=== PATIENT | female | born 1955 | race Caucasian/White ===

== ENCOUNTER → 2023-12-13 12:42 | Outpatient (REF) | payer BC, SELFPAY | LOC: HWRAD 12:42 | PROVIDERS: ATTENDING PHYSICIAN Surgery Vascular Surgery; FAMILY PHYSICIAN Family Medicine | DX: I65.21 Occlusion and stenosis of right carotid artery (principal) | CPT/HCPCS: 70496; 70498; Q9967 ==

== ENCOUNTER 2024-01-17 07:12 | Inpatient (IN) | payer BC, SELFPAY ==
[2024-01-12 10:10] LABS: % Basophils 0.6 % (0-2); % Eosinophils 4.9 % (0-6); % Immature Granulocytes 0.2 % (0-0.5); % Lymphocytes 11.7 % (20.5-51.1); % Monocytes 6.3 % (1.7-9.3); % Neutrophils 76.3 % (42.2-75.2); Absolute Basophils 0.1 10^3/uL (0-0.2); Absolute Eosinophils 0.4 10^3/uL (0-0.7); Absolute Monocytes 0.5 10^3/uL (0.1-0.6); Absolute Neutrophils 6.4 10^3/uL (1.4-6.5); Hematocrit 36.7 % (37.0-47.0); Hemoglobin 12.5 g/dL (12.0-16.0); Mean Corp Hgb Conc. 34.1 g/dL (33.0-37.0); Mean Corpuscular Hgb 31.3 pg (27.0-31.0); Nucleated Red Blood Cells % 0 %; Platelet Count 316 10^3/uL (130-400); Red Blood Cell Count 3.99 10^6/uL (4.20-5.40); White Blood Cell Count 8.4 10^3/uL (4.8-10.8)
[2024-01-12 10:19] LABS: INR 1.01; PT 13.3 Sec (11.4-14.6)
[2024-01-12 10:20] LABS: APTT 30.3 Sec (23.4-35.0)
[2024-01-12 10:32] LABS: Blood Urea Nitrogen 20 mg/dl (7-17); Calcium 9.9 mg/dl (8.4-10.2); Carbon Dioxide 27 mmol/L (22-30); Chloride 101 mmol/L (98-107); Glucose 140 mg/dl (70-99); Potassium 4.4 mmol/L (3.5-5.1); Sodium 143 mmol/L (135-145); eGFR > 60.00
[2024-01-12 11:49] VITALS: BMI 38.9
[2024-01-17] VITALS (8 sets, daily range): BP systolic 101–157; BP diastolic 43–68
[2024-01-17] MEDS: BACTROBAN NASAL 1 GRAM NASAL (08:01)
[2024-01-17] MEDS: NSS 500 IV (08:01)
[2024-01-17] MEDS: PERIDEX 0.12% ORAL RINSE 15 ML PO (08:01)
[2024-01-17 08:08] LABS: Glucose - Point of Care 102 mg/dl (70-99)
--- NOTE | 2024-01-17 08:39 | W.SUR.PREOP ---
Pre-Operative Surgical Note
-
I have examined this patient prior to the performance of the scheduled procedure.
The patient's condition is unchanged from the time of the current History and
Physical and the patient is able to undergo the scheduled procedure.
[2024-01-17 09:20] LABS: ACT-LR - POC 322 Seconds (116-155)
[2024-01-17 10:04] LABS: ACT-LR - POC 263 Seconds (116-155)
--- NOTE | 2024-01-17 10:32 | OR.RPT ---
Operative Report
Operative Report
Date of Operation: 01/17/2024
Pre Op Diagnosis: High-grade stenosis right carotid artery, asymptomatic
Post Op Diagnosis: High-grade stenosis right carotid artery, asymptomatic
Procedure: RIGHT carotid endarterectomy with patch angioplasty using bovine pericardium
Surgeon: Jean Marie Arteaga III, MD
Horse Identifier: Asim Davalos MD PhD, PGY2
Anesthesia: General
Complications: None
History and Indications for Procedure: 68-year-old female with high-grade asymptomatic right carotid artery stenosis
Procedure in Detail: Rere Junior was correctly identified and placed supine on the operating table. After adequate induction of anesthesia the right neck was positioned, prepped and draped in the usual sterile fashion. Preoperative antibiotics
were administered. A timeout procedure was performed with the nursing and anesthesia staff confirming the patients identity as well as the nature and laterality of the procedure.
The carotid bifurcation was marked with ultrasound at the beginning of the case. The incision was planned accordingly. An incision was made along the anterior border of the right sternocleidomastoid muscle. Electrocautery was used to divide the
subcutaneous tissue and platysma. The carotid sheath was entered with sharp dissection. The internal jugular vein was retracted laterally. The vagus nerve was identified and protected throughout the case. The common carotid artery was identified at
the base of this incision and carefully encircled with a vessel loop. The patient was systemically heparinized. The dissection was continued distally towards the carotid bifurcation. The facial vein was skeletonized, ligated and divided between ties
and clips. The proximal external carotid artery was encircled with a vessel loop. The distal internal carotid artery was encircled with a vessel loop at a soft spot on the artery beyond the plaque. The hypoglossal nerve was identified and protected.
The internal vessel loop was secured followed by the common and external. An arteriotomy was made on the distal common carotid artery with an 11-blade. This was extended proximally and distally with Anderson scissors. The arteriotomy was extended
distally through the plaque to an area of normal appearing internal carotid artery. The distal vessel loop was replaced with a short tip hockey-stick type vascular clamp. An endarterectomy was performed with a [place] elevator in the standard
fashion. The proximal extent of the plaque was transected with scissors. The distal end of the plaque in the internal carotid artery feathered very nicely with a slight distal intimal flap identified. This was tacked down nicely with 2 interrupted
7-0 Prolene sutures. The plaque extending into the external carotid artery was everted. Once the plaque was fully removed the endarterectomy plane was irrigated with heparinized saline and any loose fronds of tissue were removed. A pre-cut piece of
bovine pericardium was sewn in place using a running 6-0 Prolene suture. Prior to the completion of the patch the common carotid was allowed to forward bleed and the external was allowed to back bleed. The area under the patch was irrigated with
heparinized saline to remove any potential thrombus or debris. The anastomosis was completed.
The external vessel loop was released first, followed by the common and then the internal. There was an excellent pulse in the distal internal carotid artery. An excellent quality Doppler signal in the distal internal carotid artery was also
confirmed. The patch suture line was closely inspected for hemostasis and was achieved. Protamine was administered. Hemostasis was achieved in the wound bed. The wound was irrigated with saline solution.
The wound was then closed in layers. Skin glue was applied. The patient awoke from anesthesia with no immediate neuro deficits and was taken to the PACU in stable condition.
Attestation: I was present and responsible for the entire procedure
Signed:
Jean Marie Arteaga III, MD
[facility] Vascular Surgery
[phone] (cell)
[2024-01-17 10:54] LABS: Glucose - Point of Care 153 mg/dl (70-99)
[2024-01-17 11:03] LABS: Hemoglobin 10.5 g/dL (12.0-16.0); Mean Corp Hgb Conc. 33.9 g/dL (33.0-37.0); Mean Corpuscular Hgb 30.3 pg (27.0-31.0); Mean Corpuscular Volume 89.6 fL (81.0-99.0); Platelet Count 262 10^3/uL (130-400); Red Blood Cell Count 3.46 10^6/uL (4.20-5.40); Red Cell Dist. Width 13.8 % (11.5-14.5); White Blood Cell Count 11.2 10^3/uL (4.8-10.8)
[2024-01-17] MEDS: SUBLIMAZE 25 MCG IV (11:15)
--- NOTE | 2024-01-17 11:15 | W.IMMPOSTOP ---
Surgical Immed Post Op Note
-
Primary Surgeon: Dr. Jean Marie Arteaga III, MD
Assisting Surgeon: Asmi Davalos MD, PhD (PGY-2)
Pre-op Diagnosis: Right carotid stenosis
Post-op Diagnosis: Right carotid stenosis
Procedure Performed: Right carotid endarterectomy with bovine patch angioplasty
Anesthesia Type: General
Specimen / Cultures: None
Estimated Blood Loss: 25cc
Complications: None
Operative Findings: The patient was brought to the OR and positioned supine. Following induction of anesthesia, intubation, radial line placement, and neuromonitoring placement, ultrasound guidance was used to map the course of the right common
carotid artery, bifurcation, and right ICA. The patient was prepped and draped in usual sterile fashion. Incision was made on the anterior border of the SCM. Electrocautery was used to dissect through the subq and platysma layers. Sharp dissection
was performed to expose the RIJV. This was swept laterally with a retractor. The vagus nerve was identified. Proximal control was achieved on the common carotid using blue vessel loop. Distal control of the right ICA, superior thyroid artery, and
right ECA was achieved with red vessel loops. The vessel loops were tightened beginning with internal, followed by common, and external carotid arteries. 11 blade was used to make arteriotomy overlying the plaque. This incision was extended with
Pott's scissors. An endarterectomy was performed with a freer without complication. Two tacking sutures were placed at the distal end of the vessel. A bovine pericardial patch was brought to the field. A patch angioplasty was performed using running
prolene suture. Prior to completing the patch, the vessel was allowed to back and forward bleed. Vessel loops were removed and ultrasound demonstrated excellent flow in the ICA and ECA. Hemostasis was achieved and the wound bed was irrigated. The
wound was closed with three layers of suture and skin glue at the surface. The patient demonstrated no new neurologic deficits at the conclusion of the case, CN12, upper and lower extremity motors intact, facial motor intact. The patient was
transported to the PACU in stable condition.
[2024-01-17 11:16] LABS: Blood Urea Nitrogen 18 mg/dl (7-17); Calcium 8.5 mg/dl (8.4-10.2); Carbon Dioxide 23 mmol/L (22-30); Chloride 105 mmol/L (98-107); Estimated Creatinine Clearance 99 ml/min; Glucose 154 mg/dl (70-99); Potassium 4.2 mmol/L (3.5-5.1); Sodium 140 mmol/L (135-145); eGFR > 60.00
[2024-01-17 11:17] LABS: INR 1.11; PT 14.1 Sec (11.4-14.6)
[2024-01-17 11:18] LABS: APTT 31.4 Sec (23.4-35.0)
[2024-01-17] MEDS: MORPHINE SULFATE 2 MG IV ×3 (12:16→22:50)
[2024-01-17] MEDS: CRESTOR 5 MG PO (12:16)
[2024-01-17] MEDS: NSS 1000 IV ×2 (12:16→23:03)
--- NOTE | 2024-01-17 13:23 | PTCARENOTE ---
1150-Received pt from PACU via bed.Pt is awake and alert.Speech is appropriate.Face is symmetrical.Tongue is midline.5/5MAE noted.c/o severe right neck pain.Medicated with Morphine with good relief.SB noted.Right radial A Line intact.Correlates with
NIBP.IVF infusing.O2 4l NC.POX 96%Lungs CTA.Tolerating clear liquids.Pt has not voided at this time.Right neck incision intact with surgical glue.No drainage or edema noted.Ice applied as ordered.Pt's and daughter at bedside.Plan of care
discussed.
[2024-01-17] MEDS: NOVOLOG FLEXPEN-LOW RESISTANCE SC (13:31)
--- NOTE | 2024-01-17 14:20 | CON.INTV ---
Consultation
Consultation Request
Date/Time Consultation Requested: 01/17/2024
Date/Time Consultation Performed: 01/17/2024
Requesting Provider: Dr. Arteaga
Performing Provider: Dr. Gurwinder Cano
Reason for Consultation: Status post right carotic endarterectomy
Medical History
Past Medical History
Past Medical History: Other (See assessment and plan section)
Social History
Tobacco: Former Smoker
Alcohol: None
Drug: None
Living: With Family
Family History
Family History: Reviewed & Not Pertinent
Allergies / Home Medications
Allergies
Allergy/AdvReac Type Severity Reaction Status Date / Time
No Known Allergies Allergy Unverified 01/10/24 13:27
Home Medications
�Medication �Instructions �Recorded �Confirmed �Last Taken �Type
Flonase 1 dose intranasal DAILY PRN 01/10/24 01/17/24 01/14/24 09:00 History
congestion
aspirin 81 mg capsule 81 mg PO DAILY Blood Clot 01/10/24 01/17/24 01/16/24 09:00 History
Prevention/Tx
calcium polycarbophil 625 mg 1,250 mg PO DAILY Constipation 01/10/24 01/17/24 01/16/24 23:00 History
tablet (FiberCon)
cetirizine 10 mg tablet (Zyrtec) 10 mg PO DAILY Allergies 01/10/24 01/17/24 01/16/24 23:00 History
coenzyme Q10 30 mg capsule 30 mg PO DAILY Supplement 01/10/24 01/10/24 01/10/24 08:00 History
ezetimibe 10 mg tablet (Zetia) 10 mg PO DAILY High Cholesterol 01/10/24 01/17/24 01/16/24 09:00 History
glipizide 5 mg tablet 5 mg PO BID Diabetes 01/10/24 01/17/24 01/16/24 23:00 History
hydrochlorothiazide 25 mg tablet 25 mg PO DAILY Blood Pressure 01/10/24 01/17/24 01/16/24 09:00 History
losartan 100 mg tablet 100 mg PO DAILY Blood Pressure 01/10/24 01/17/24 01/16/24 23:00 History
metformin 500 mg tablet 500 mg PO BID Diabetes 01/10/24 01/17/24 01/16/24 23:00 History
ycbngnbh-fffy-ivok 8 mg-folic 400 1 tab PO DAILY Supplement 01/10/24 01/17/24 01/10/24 08:00 History
mcg-K 50 mcg-lutein 300 mcg tablet
(Centrum Silver Women)
rosuvastatin 5 mg tablet (Crestor) 5 mg PO QMWF High Cholesterol 01/10/24 01/17/24 01/14/24 08:00 History
semaglutide 0.25 mg or 0.5 mg (2 0.25 mg SC QWEEK Diabetes 01/10/24 01/10/24 12/22/23 History
mg/3 mL) subcutaneous pen injector
(Ozempic)
Review of Systems
-
History Source: Patient
All other systems: Negative unless noted
Vitals / Labs / Diagnostic Testing
Vital Signs
Temp Pulse Resp BP Pulse Ox
97.9 F 53 14 102/51 96
01/17/24 12:49 01/17/24 12:30 01/17/24 12:30 01/17/24 11:45 01/17/24 13:00
Lab Data
01/17/24 10:54
01/17/24 10:53
Laboratory Results
01/17/24
10:53
PT 14.1
INR 1.11
APTT 31.4
Diagnostic Testing:
Physical Exam
-
HEENT: Normocephalic and Other ( No stridor)
Cardiovascular: S1/S2
Respiratory: Clear and Non-Labored Respirations
GI: Soft and Non Distended
Neurology: Awake, Alert, AO x 3, No Motor Deficits and Other (Right cervical incision is intact. No hematoma.)
Skin: Warm
General: Respiratory Distress
Assessment
-
Right carotid endarterectomy with bovine patch angioplasty 01/17/2024-Dr. Arteaga
Conditions present prior admission:
HTN
High Cholesterol
Type 2 DM
s/p ZEHRA
Former smoker
History of knee replacement-right
Assessment and plan:
Postoperative surgical intensive care unit monitoring
Supplemental oxygen as needed
Incentive spirometry
Aspiration precautions
History of endometrial carcinoma/apparently son intra-abdominal lymphadenopathies that were metastatic, status post radiation and chemotherapy. Currently on remission.
Incision intact without hematoma
No stridor on exam
-
Chest x-ray 01/12/2024: Clear lung
Neuro and vascular checks per protocol
Vascular surgery following-correspondence and operative notes reviewed
Monitor blood pressure
Restart outpatient medications
Cardene drip will be started if needed
Follow blood sugars
Insulin supplementation as needed
Advance diet as tolerated
Gentle IV fluid
Monitor electrolytes
DVT prophylaxis
Early mobilization
--- NOTE | 2024-01-17 15:28 | PTCARENOTE ---
Pt c/o right neck pain.Requested and received Morphine for pain.
--- NOTE | 2024-01-17 16:31 | PTCARENOTE ---
Pt assessed.No change in assessment noted.Pt voided in bedpan.
[2024-01-17] MEDS: HEPARIN 5000 UNITS SC ×2 (17:20→23:00)
[2024-01-17] MEDS: GLUCOTROL 5 MG PO (17:21)
[2024-01-17] MEDS: GLUCOPHAGE 500 MG PO (17:22)
[2024-01-17 17:30] LABS: Glucose - Point of Care 239 mg/dl (70-99)
[2024-01-17] MEDS: ROXICODONE 5 MG PO ×2 (17:31→21:35)
[2024-01-17] MEDS: NOVOLOG FLEXPEN-LOW RESISTANCE 2 UNITS SC (17:56)
--- NOTE | 2024-01-17 20:00 | PTCARENOTE ---
Received pt via handoff. Pt AAOx3, able to RIOS, good facial symmetry, 5/5 extremities, afebrile. NSR, palpable upper and lower pulses. 94% RA, lungs sounds diminished throughout. Hypoactive bowel sounds in all 4Q. Voiding clear yellow urine in
bedpan. Right radial A Line zeroed and correlates w/ cuff. NS gtt running see flowsheet. Family at bedside. Call yarbrough within reach, will continue to monitor.
[2024-01-17] MEDS: NOVOLOG FLEXPEN 2 UNITS SC (21:57)
[2024-01-17 21:59] LABS: Glucose - Point of Care 242 mg/dl (70-99)
[2024-01-18] VITALS (9 sets, daily range): BP systolic 124–181; BP diastolic 59–71; BMI 40.1
--- NOTE | 2024-01-18 | PTCARENOTE ---
All systems reassessed, no change in status. Pt given PRN medications for incision pain. Using bedpan to void. Call yarbrough at bedside, will continue to monitor.
[2024-01-18] MEDS: MORPHINE SULFATE 2 MG IV ×2 (01:34→04:34)
[2024-01-18] MEDS: ROXICODONE 5 MG PO (01:46)
--- NOTE | 2024-01-18 04:00 | PTCARENOTE ---
All systems reassessed, labs drawn, hygiene performed. Will continue to monitor.
[2024-01-18 05:04] LABS: Hematocrit 30.9 % (37.0-47.0); Hemoglobin 10.4 g/dL (12.0-16.0); Mean Corp Hgb Conc. 33.7 g/dL (33.0-37.0); Mean Corpuscular Volume 92.2 fL (81.0-99.0); Mean Platelet Volume 10.6 fL (7.4-10.4); Platelet Count 257 10^3/uL (130-400); Red Blood Cell Count 3.35 10^6/uL (4.20-5.40); Red Cell Dist. Width 13.5 % (11.5-14.5); White Blood Cell Count 12.7 10^3/uL (4.8-10.8)
[2024-01-18 05:09] LABS: INR 1.13; PT 14.3 Sec (11.4-14.6)
[2024-01-18 05:10] LABS: APTT 28.8 Sec (23.4-35.0)
[2024-01-18 05:36] LABS: Blood Urea Nitrogen 22 mg/dl (7-17); Calcium 8.3 mg/dl (8.4-10.2); Carbon Dioxide 21 mmol/L (22-30); Chloride 107 mmol/L (98-107); Estimated Creatinine Clearance 101 ml/min; Glucose 208 mg/dl (70-99); Potassium 4.4 mmol/L (3.5-5.1); Sodium 140 mmol/L (135-145); eGFR > 60.00
[2024-01-18 06:08] LABS: Hepatitis C Antibody Negative (Negative)
[2024-01-18] MEDS: TYLENOL 650 MG PO ×2 (07:55→14:01)
[2024-01-18] MEDS: THERAGRAN 1 TABLET PO (07:56)
[2024-01-18] MEDS: ZETIA 10 MG PO (07:56)
[2024-01-18] MEDS: COZAAR 100 MG PO (07:56)
[2024-01-18] MEDS: LOW STRENGTH ASPIRIN 81 MG PO (07:58)
[2024-01-18] MEDS: ORETIC 25 MG PO (07:58)
[2024-01-18] MEDS: GLUCOPHAGE 500 MG PO (07:58)
[2024-01-18] MEDS: GLUCOTROL 5 MG PO (07:58)
[2024-01-18] MEDS: HEPARIN 5000 UNITS SC (07:59)
--- NOTE | 2024-01-18 08:00 | W.PN.VS ---
Addendum entered and electronically signed by Jean Marie Arteaga III, MD 01/18/24 11:13:
This patient was seen and examined with BAR Lr. I agree with the history and physical exam as well as the assessment and plan.
Signed:
Jean Marie Arteaga III, MD
[facility] Vascular Surgery
[phone] (dfdu)
Original Note:
Today's Communication / Plan
-
d/w Dr Arteaga
Assessment/Plan
-
POD 1 RIGHT carotid endarterectomy with patch angioplasty using bovine pericardium
Plan:
-DC zeyad
-DC IVF
-Diet
-OOB/ambulate
-PO meds
-Likely DC later today
Subjective Data
-
Date of Service: January 18, 2024
Pt seen at bedside this am. No events overnight. No gtts. No complaints at this time.
Objective Data
-
Vital Signs
Temp Pulse Resp BP Pulse Ox
97.6 F 84 17 102/51 95
01/18/24 03:21 01/18/24 07:15 01/18/24 07:15 01/17/24 11:45 01/18/24 07:15
Intake and Output
01/17/24 01/18/24 01/19/24
06:59 06:59 06:59
Intake Total 2350 / 2430 80 / 80
Output Total 925 / 1225 300 / 300
Balance 1425 / 1205 -220 / -220
Intake:
Oral fluids 480 / 480
IV fluids (Total) 1870 / 1950 80 / 80
NSS 350 / 350
Nss 1,000 ml @ 80 mls/hr IV . 1520 / 1600 80 / 80
[id number] [facility] Rx#:[id number]
Output:
Urine, Voided 925 / 1225 300 / 300
Lab Results
01/18/24 04:30
01/18/24 04:30
Calcium 8.3 mg/dl (8.4-10.2) L 01/18/24 04:30
Physical Exam
-
AAOx3
No tachypnea
No tachycardia
Neck site soft, no drainage noted, intact
Follows commands
Tongue midline
[2024-01-18] MEDS: NOVOLOG FLEXPEN-LOW RESISTANCE 2 UNITS SC (08:01)
[2024-01-18 08:08] LABS: Glucose - Point of Care 205 mg/dl (70-99)
--- NOTE | 2024-01-18 08:34 | PTCARENOTE ---
Pt rec'd from [facility], AOx3, neuro checks Q1 WNL. Pt has 2 week hx of vertigo. Pt voided 300 mls on bedpan for PCT 07:45. Plan of care discussed with Madiha Bryant [facility] [employer]IST[employer] OPERATIONS MANAGER; will dc A-line, stop IVF, get pt OOB, hopefully discharge home later
today. Pt in agreement. Pt's questions answered, verbalized understanding about her post op care and followup. A-Line leveled and zeroed, correlated with cuff, all vital signs WNL. Medications administered -see MAY. PRN Tylenol admin for 06/22
neck/throat pain. Lung sounds with fine crackles ausculatated 1/2 way up, deep breathing encouraged and IS provided. Pt weaned to room air, IVF and A-line dc'd at 0800. Assisted oob to chair at approx 08:15, pt c/o sl dizziness (not r/t vertigo)
which resolved after sitting in chair and resting. BP rechecked at this time, 167/68. Sp02 94% on room air. Glucose 205. 2 units Novolog admin per protocol. Breakfast tray delivered, pt eating. Pt with no other needs at this time, safe
environment maintained.
--- NOTE | 2024-01-18 09:35 | CM ---
CM following re: discharge planning.
Reviewed pt's chart, met with pt.
Pt is a 68 year old female, admitted with primary dx of POD 1 RIGHT carotid endarterectomy. Per vascular surgery, pt most likely will be discharged home later today. Pt is aware and she stated he will transport her home.
Pt reports she lives with at 3 adult children in a 2[place] 55[place] community, has 4 supportive children. Pt described herself as independent in all areas [employer], drives, works. No DME, VN or SNF history.
PCP: Ricki Gore
Pharmacy: [facility].
D/C plan: home no needs. to transport.
--- NOTE | 2024-01-18 10:15 | W.PN.INTV ---
Today's Communication / Plan
Recommendations
Continue postoperative care
Sign off.
Discharge planning
Assessment
-
Right carotid endarterectomy with bovine patch angioplasty 01/17/2024-Dr. Arteaga
Conditions present prior admission:
HTN
High Cholesterol
Type 2 DM
s/p ZEHRA
Former smoker
History of endometrial carcinoma/apparently son intra-abdominal lymphadenopathies that were metastatic, status post radiation and chemotherapy. Currently on remission.
History of knee replacement-right
Assessment and plan:
Doing well postoperative day 1
Neurologically intact
Hemodynamically stable.
Incision without hematoma
No stridor on exam.
Incentive spirometry
-
Neuro and vascular checks per protocol
Vascular surgery following-correspondence and operative notes reviewed
Hemodynamically stable
Arterial line has been discontinued
Increase activity as tolerated
Follow blood sugars
Insulin supplementation as needed
Tolerating diet
DVT prophylaxis
Discharge planning noted.
Signed off
Subjective Dataa
Subjective Data
Date of Service:
Date of Service: January 18, 2024
Chief Complaint: Activities Therapist Follow Up (Status post right carotid endarterectomy)
Subjective:
Patient denies any blurry vision or headache
Denies nausea vomiting
Currently sitting out of bed, tolerating breakfast.
Review of Systems
General: Fever (n)
Cardiopulmonary: Dyspnea
GI: Abdominal Pain (n) and Nausea (n)
Neuro: Headache (n)
Objective Data
Data Reviewed
Vital Signs / I&O / Oxygen:
Vital Signs
Temp Pulse Resp BP Pulse Ox
97.6 F 57 10 134/59 94
01/18/24 08:08 01/18/24 10:00 01/18/24 10:00 01/18/24 10:00 01/18/24 08:53
Intake and Output
01/17/24 01/18/24 01/19/24
06:59 06:59 06:59
Intake Total 2350 / 2430 320 / 320
Output Total 925 / 1225 300 / 300
Balance 1425 / 1205 20 / 20
SaO2 94
Nasal Cannula flow liters per 4
minute
Physical Exam
General: Comfortable
HEENT: Normocephalic
Cardiovascular: S1-S2
Respiratory: Non-Labored Respirations
GI: Soft and Non Distended
Neurology: Awake and AO x 3
Skin: Warm
Labs/Micro/Reports
Lab Data
01/18/24 04:30
01/18/24 04:30
Laboratory Results
01/17/24 01/18/24
10:53 04:30
PT 14.1 14.3
INR 1.11 1.13
APTT 31.4 28.8
[2024-01-18 11:59] LABS: Glucose - Point of Care 229 mg/dl (70-99)
[2024-01-18] MEDS: NOVOLOG FLEXPEN-LOW RESISTANCE 3 UNITS SC (12:33)
== END 2024-01-18 14:56 | disposition home or self-care (01) | DRG 39 ==
LOC: ICU 07:12
PROVIDERS: Nurse Practitioner Acute Care; ADMITTING PHYSICIAN Surgery Vascular Surgery; CONSULT PHYSICIAN Internal Medicine Critical Care Medicine; FAMILY PHYSICIAN Family Medicine
PROC: 03CM0ZZ Extirpation of Matter from Right External Carotid Artery, Open Approach (ICD-10-PCS; 2024-01-17)
PROC: 03UM0KZ Supplement Right External Carotid Artery with Nonautologous Tissue Substitute, Open Approach (ICD-10-PCS; 2024-01-17)
DX: I65.21 Occlusion and stenosis of right carotid artery (principal); I10 Essential (primary) hypertension; E78.00 Pure hypercholesterolemia, unspecified; E11.9 Type 2 diabetes mellitus without complications; Z79.84 Long term (current) use of oral hypoglycemic drugs; Z87.891 Personal history of nicotine dependence; Z85.42 Personal history of malignant neoplasm of other parts of uterus
CPT/HCPCS: 35301; 36415; 71046; 80048; 82962; 85025; 85027; 85610; 85730; 86803

== ENCOUNTER → 2024-02-25 08:27 | Outpatient (REF) | payer BC, SELFPAY | LOC: RAD 08:27 | PROVIDERS: ATTENDING PHYSICIAN Physician Assistant; FAMILY PHYSICIAN Family Medicine | DX: I65.21 Occlusion and stenosis of right carotid artery (principal) | CPT/HCPCS: 93880 ==

== ENCOUNTER → 2024-03-27 14:45 | Outpatient (REF) | payer BC, SELFPAY | LOC: HWRCS 14:45 | PROVIDERS: ATTENDING PHYSICIAN Internal Medicine Cardiovascular Disease; FAMILY PHYSICIAN Family Medicine | DX: I34.0 Nonrheumatic mitral (valve) insufficiency (principal) | CPT/HCPCS: 93306 ==

== ENCOUNTER → 2024-08-31 08:08 | Outpatient (REF) | payer BC, SELFPAY | LOC: RAD 08:08 | PROVIDERS: ATTENDING PHYSICIAN Surgery Vascular Surgery; FAMILY PHYSICIAN Family Medicine | DX: I65.21 Occlusion and stenosis of right carotid artery (principal) | CPT/HCPCS: 93880 ==